=== PATIENT | female | born 1950 | race Caucasian/White ===

== ENCOUNTER 2023-03-04 01:46 | Day surgery (SDC) | payer MEDICARE, BC, SELFPAY ==
--- NOTE | 2023-02-26 13:32 | PC.NURSE ---
Report to the Outpatient Waiting Room, entrance under the green pavilion located off [facility], at time __30 on date __03/04/23 . Planned Procedure Time: __929 . Time changes happen often and if your time is changed the preop area will call you the afternoon before. - You and your visitor will be asked to self-screen and do not enter if you have any COVID symptoms. - A mask is optional within the hospital at this time. Patients may have clear liquids (water, carbonated beverages, clear teas, apple juice) until 3 hours prior to surgery with a maximum of 20 ounces. - No food from midnight until time of surgery - Infants may have breast milk until 4 hours before surgery, infant formula 6 hours prior to surgery. - Children will be allowed to drink immediately following surgery. If applicable, please bring a bottle or sippy cup to assist with drinking. Juice, water, soda, and popsicles are readily available. For infants on formula, please bring formula the day of surgery. Pacifiers are allowed. Take the following medications with a SIP of water the morning of surgery: __DULOXETINE,GABAPENITN DO NOT STOP ANY OF YOUR OTHER PRESCRIPTION MEDICATIONS PRIOR TO SURGERY ?EXCEPT THE FOLLOWING Medications to discontinue per physician ____ALL VITAMINS AND SUPPLEMENTS 3 DAYS PRE OP .LAST DOSE 02/28/23 Please no make-up, nail palestinian, hairspray, perfume, deodorant, or body powder the day of surgery. No jewelry (including any body piercings) or valuables the day of surgery, leave them at home. Please take a shower or bath the night before, or the morning of, surgery with an antibacterial soap. Wear comfortable, loose fitting clothing. Children are encouraged to wear pajamas. - Jewelry must be removed prior to entering the operating room. Rings and piercings that are not removed may be cut off. - The hospital will not accept responsibility for valuables. - Please leave all valuables, including medications, at home the day of surgery. If you are going home after surgery, a licensed form setter/driver must drive you home. - NO public transportation without another adult if you receive anesthesia. - We recommend that an adult stay with you for 24 hours following discharge. - We also recommend that you do not drive, make important decision, drink alcoholic beverages, or take any drugs that were not prescribed by your health care provider for at least 24 hours after your discharge time. For Pediatric surgeries, we recommend two adults accompany the child home. Follow any additional instructions given to you from your surgeon. If you or anyone in your household have experienced Covid symptoms in the past week, please notify your surgeon or the nurse liaison at the phone number below for possible testing. Telephone instructions given to _PATIENT and asked if any additional questions and then verbalized understanding. Patient advised to call surgeon office or pre surgery nurse liaison [phone] if any additional questions.
[2023-02-26 13:45] VITALS: BMI 27.6
[2023-03-04 07:44] VITALS: BP 150/90; PULSE 79; RESP 18; TEMP 36.6; O2SAT 97
[2023-03-04] MEDS: LACTATED RINGERS 1,000 ML 30 ML IV CONT (08:21)
--- NOTE | 2023-03-04 09:04 | WPDANESEPPF ---
Anes - Initial Pre Proc Eval Procedure: Operation Date: 03/04/23 09:30 Proposed Procedures p Excision Right Antecubital Fossa Subcutaneous Mass - Neto Del Castillo MD Date/Time: 03/04/23 09:04 Surgeon: Neto Del Castillo MD Pre Op Diagnosis: subq mass right antecubital fossa Patient Data Age: 72 Gender: F Height: 1.55 m Weight: 66.9 kg Last Vital Signs Temp 36.6 C 03/04/23 07:44 Pulse 79 03/04/23 07:44 Resp 18 03/04/23 07:44 BP 150/90 H 03/04/23 07:44 Pulse Ox 97 03/04/23 07:44 O2 Del Method Room Air 03/04/23 07:44 Allergies Allergy/AdvReac Type Severity Reaction Status Date / Time Penicillins Allergy Unknown Rash Verified 03/04/23 07:40 Home Medications Medication Instructions Recorded Confirmed Type B-complex with vitamin C 1 tablet PO DAILY 03/02/19 02/26/23 History magnesium oxide 250 mg PO DAILY 03/02/19 02/26/23 History gabapentin 300 mg capsule 300 mg PO . once daily #90 caps 07/04/22 02/26/23 Rx irbesartan 300 1 tablet PO DAILY #90 tabs 07/04/22 02/26/23 Rx mg-hydrochlorothiazide 12.5 mg tablet lansoprazole 15 mg capsule,delayed 15 mg PO PRN PRN Heartburn 07/04/22 02/26/23 History release (Prevacid 24Hr) meloxicam 15 mg tablet 15 mg PO DAILY PRN pain #90 tabs 07/04/22 02/26/23 Rx atorvastatin 10 mg tablet 10 mg PO DAILY #90 tabs 09/17/22 02/26/23 Rx fluticasone propionate 50 1 spray intranasal BID #16 grams 01/10/23 02/26/23 Rx mcg/actuation nasal spray,suspension (Flonase Allergy Relief) duloxetine 60 mg capsule,delayed 60 mg PO DAILY FIBROMYALGIA AND IBS 02/26/23 02/26/23 History release multivitamin 1 tablet PO DAILY 02/26/23 02/26/23 History Patient hx anesthesia problems: none Family hx anesthesia problems: none Results Review: All pre-operative results and documents have been reviewed as part of the pre-operative evaluation. [facility] Past Medical History Medical History Adult BMI 28.0-28.9 kg/sq m BMI 27.0-27.9,adult GERD (gastroesophageal reflux disease) Hyperlipidemia Hypertension Lipoma of arm (~2020) 4 cm lipoma flexor surface medial right elbow Menopausal and female climacteric states MVP (mitral valve prolapse) Osteoarthritis involving multiple joints on both sides of body Overweight (BMI 25.0-29.9) URI (upper respiratory infection) (08/24/20) Surgical History Surgical History History of hysterectomy History of Eloise fundoplication Family History Family History Grandparent Family history of osteoporosis Family history of osteoarthritis Acute myocardial infarction Family history of malignant neoplasm of breast in first degree relative Father Acute myocardial infarction Family history of kidney disease Malignant neoplasm of prostate Mother Family history of chronic obstructive pulmonary disease Carcinoma of colon Family history of malignant neoplasm of breast in first degree relative Sibling Carcinoma of colon, Onset Age: 44 Social History Social History Smoking status: Never smoker Alcohol intake: never Substance use: never Substance use type: does not use Lack of Transportation: No Lack of Food: Never True Current Housing: I Have Housing Concerned About Future Housing: No Difficulty Paying Gas/Electric Bills: No Difficulty Paying for Meds: No Currently Unemployed: No Difficulty w/ Childcare or Family Care: No Living arrangements: alone Occupation/Education: retired Spiritual care concerns: No Anes - Eval Final PreProcedure Day of Procedure 03/04/23 09:04 Patient weight: overweight Heart: regular rate and rhythm Lungs: clear to auscultation Airway: Mallampati scale class II Neurological: alert and oriented Last oral intake: >/= 8 hours ASA classification: II Emergent: no Anesthetic plan: pr
--- NOTE | 2023-03-04 09:46 | PM.IMHP ---
H&P: HPI History of Present Illness Date/Time: 03/04/23 09:46 Chief Complaint: Right arm SQ mass Narrative: Ele is a 72 y/o female who presents with a right antecubital fossa mass at the request of Dr. Rich. Patient first noticed the mass about 5 years ago. She states it has increased in size. She denies pain, redness, and drainage. Patient is right handed. Review of Systems Review of Systems: The remainder of the review of systems to include constitutional, HEENT, cardiovascular, respiratory, GI, , integumentary, musculoskeletal, endocrine, immunologic, hematologic, psychiatric, and neurologic are all negative except for which is mentioned above in the HPI. [facility] Past Medical History Medical History Adult BMI 28.0-28.9 kg/sq m BMI 27.0-27.9,adult GERD (gastroesophageal reflux disease) Hyperlipidemia Hypertension Lipoma of arm (~2020) 4 cm lipoma flexor surface medial right elbow Menopausal and female climacteric states MVP (mitral valve prolapse) Osteoarthritis involving multiple joints on both sides of body Overweight (BMI 25.0-29.9) URI (upper respiratory infection) (08/24/20) Surgical History Surgical History History of hysterectomy History of Eloise fundoplication Family History Family History Grandparent Family history of osteoporosis Family history of osteoarthritis Acute myocardial infarction Family history of malignant neoplasm of breast in first degree relative Father Acute myocardial infarction Family history of kidney disease Malignant neoplasm of prostate Mother Family history of chronic obstructive pulmonary disease Carcinoma of colon Family history of malignant neoplasm of breast in first degree relative Sibling Carcinoma of colon, Onset Age: 44 Social History Social History Smoking status: Never smoker Alcohol intake: never Substance use: never Substance use type: does not use Lack of Transportation: No Lack of Food: Never True Current Housing: I Have Housing Concerned About Future Housing: No Difficulty Paying Gas/Electric Bills: No Difficulty Paying for Meds: No Currently Unemployed: No Difficulty w/ Childcare or Family Care: No Living arrangements: alone Occupation/Education: retired Spiritual care concerns: No Meds Home Medications and Allergies Home Medications Medication Instructions Recorded Confirmed Type B-complex with vitamin C 1 tablet PO DAILY 03/02/19 02/26/23 History magnesium oxide 250 mg PO DAILY 03/02/19 02/26/23 History gabapentin 300 mg capsule 300 mg PO . once daily #90 caps 07/04/22 02/26/23 Rx irbesartan 300 1 tablet PO DAILY #90 tabs 07/04/22 02/26/23 Rx mg-hydrochlorothiazide 12.5 mg tablet lansoprazole 15 mg capsule,delayed 15 mg PO PRN PRN Heartburn 07/04/22 02/26/23 History release (Prevacid 24Hr) meloxicam 15 mg tablet 15 mg PO DAILY PRN pain #90 tabs 07/04/22 02/26/23 Rx atorvastatin 10 mg tablet 10 mg PO DAILY #90 tabs 09/17/22 02/26/23 Rx fluticasone propionate 50 1 spray intranasal BID #16 grams 01/10/23 02/26/23 Rx mcg/actuation nasal spray,suspension (Flonase Allergy Relief) duloxetine 60 mg capsule,delayed 60 mg PO DAILY FIBROMYALGIA AND IBS 02/26/23 02/26/23 History release multivitamin 1 tablet PO DAILY 02/26/23 02/26/23 History Allergies Allergy/AdvReac Type Severity Reaction Status Date / Time Penicillins Allergy Unknown Rash Verified 03/04/23 07:40 Vital Signs Vital Signs - 24 hr 03/04/23 07:44 Temperature 36.6 C Pulse Rate 79 Respiratory Rate 18 Blood Pressure 150/90 H Pulse Oximetry 97 Oxygen Delivery Room Air Exam Const: General: comfortable and no acute distress HENMT: Ears: TM's normal bilaterally Face/Nose/Sinus: Normal nares present Mouth: Yes moist m
--- NOTE | 2023-03-04 09:49 | WPDHPUPDATE1 ---
History and Physical Update Update Date/Time: 03/04/23 09:49 History and Physical has been reviewed, including an updated exam of the patient. There are NO changes in the patient's condition. Risks, benefits, and alternatives have been discussed and questions answered. Patient agrees to proceed with procedure.
[2023-03-04] MEDS: ceFAZolin 2 GM/D5W 50 ML 2 GM/50 ML BAG IVPB (10:07)
[2023-03-04] MEDS: LIDO 1%/EPINEPHRINE 1:100,000 50 ML VIAL 20 ML INFILTRATE (10:51)
[2023-03-04 11:00] VITALS: BP 184/96; PULSE 85; RESP 14; O2SAT 96
--- NOTE | 2023-03-04 11:12 | P.OP_ITS ---
Procedure Note - Detailed Date of Procedure 03/04/23 Pre-op Diagnosis subq mass right antecubital fossa Post-op Diagnosis Other (Right antecubital fossa intramuscular lipoma) Procedure Performed Excision right antecubital fossa intramuscular lipoma. Surgeon Neto Del Castillo MD [employer] Jannette [employer] student Anesthesia MAC and Local Indications Patient is a female who presents with a slowly enlarging subcutaneous mass in the right antecubital fossa area. She presents now for excision. Findings [id number] intramuscular lipomatous mass right antecubital fossa. Description of Procedure After informed consent was obtained patient brought to the operating room she was placed supine on the operative table. Anesthesia then administered IV sedation. The right antecubital fossa was then prepped and draped usual sterile fashion. A time-out was then performed correctly identifying the patient as well as procedure to be performed verifying the site marking she was given perioperative IV antibiotics. Utilizing 1% lidocaine mixed with 0.5% Marcaine with some epinephrine I then injected this around the mass for local anesthetic effect. A transverse incision was then made the scalpel down through the dermis of the skin. Then dissected down through the subcutaneous tissue electrocautery. I then realized that the lipomatous mass was actually just below the then fascial layer of the underlying distal biceps muscle. I then incised the fascia with electrocautery to expose the capsule the lipoma and was very well circumscribed. Then with a combination electrocautery and blunt finger dissection I delivered the lipoma about incision and freed from the surrounding muscle fibers of the right biceps muscle. The tendinous insertion of the right biceps muscle was not injured. The right ulnar nerve was never in danger as it was much more for lateral. The neurovascular structures in the right ankle fossa region were preserved without injury. I then irrigated out the incision sterile saline solution. Hemostasis was then achieved electrocautery. The mass measured [id number]. It was sent to pathology for examination. I then close incision with multiple layers of interrupted 3-0 Vicryl sutures in the fascia and subcutaneous tissues. And injected more local anesthetic mixture the subcutaneous tissues around the incision. The skin edges were then approximated utilizing interrupted 3-0 nylon sutures placed in a vertical mattress fashion. The incision was then cleaned and then antibiotic ointment and a sterile dressing was applied. The patient tolerated the procedure well no complications. All sponges, needles, and instrument counts were correct at the end procedure. EBL was _5__cc. The patient was awakened and taken to recovery in stable and satisfactory condition. Implants None Estimated Blood Loss 5 Drains No Packing No Pathology Yes (Right antecubital fossa intramuscular lipoma sent to pathology) Complications No immediate complications Condition Stable Disposition PACU [facility] Billing Surgery - Charge Forward: Surgery Billing
[2023-03-04 11:30] VITALS: BP 187/99; PULSE 68
== END 2023-03-04 11:45 | disposition home or self-care (01) ==
PROVIDERS: PCP Family Medicine; Visit Provider Surgery
PROC: (CPT 24073; principal; 2023-03-04 09:30)
DX: D17.9 Benign lipomatous neoplasm, unspecified (principal); E78.5 Hyperlipidemia, unspecified; I10 Essential (primary) hypertension
CPT/HCPCS: 24073; 88304; A9270; J0690; J2704; J3010; J7120

== ENCOUNTER 2024-01-31 12:30 | Outpatient (CLI) | payer MEDICARE, BC, SELFPAY ==
--- NOTE | ~2024-01-31 | DEXA_ITS ---
Bone Density Report Name: ANNELISE HANDLEY Age: 73 Sex: Female Ethnicity: White Date of : 1950 Indication: postmenopausal; screening for osteoporosis; prior fracture; hysterectomy; Referring Provider: FLORENCE REEDER Study: Bone densitometry was performed. Exam Date: January 31, 2024 Accession number: [id number] Bone Density: Region BMD T-score Z-score Classification AP Spine(L1-L4) 0.864 -1.7 0.5 Osteopenia Femoral Neck (Left) 0.597 -2.3 -0.4 Osteopenia Total Hip (Left) 0.851 -0.7 0.8 Normal Femoral Neck (Right) 0.655 -1.7 0.1 Osteopenia Total Hip (Right) 0.831 -0.9 0.7 Normal Femoral Neck Mean 0.626 -2.0 -0.1 Osteopenia Total Hip Mean 0.841 -0.8 0.7 Normal World Health Organization criteria for BMD impression classify patients as: Normal (T-score at or above -1.0), Osteopenia (T-score between -1.0 and -2.5), or Osteoporosis (T-score at or below -2.5). 10-year Fracture Risk(1): Major Osteoporotic Fracture 20% Hip Fracture 4.6% Reported Risk Factors: [place] (), Neck BMD=0.597, BMI=29.1, previous fracture (1) FRAX(R) Version 3.08. Fracture probability calculated for an untreated patient. Fracture probability may be lower if the patient has received treatment. Clinical Information Provided by Patient: Has had a low trauma fracture Has used the following medications: Vitamin D, Calcium Has the following medical conditions: Hysterectomy Patient maximum height was 61.0 Menopause Age: 53 No regular weight bearing exercise Drinks caffeinated beverages Onset of menses at age 16 Number of children 2 Impression: The patient has low bone mass, based on the Left Femoral Neck T-score. The patient has risk factors, including: previous fracture. Discussion: BONE DENSITY IS LOW AT ONE OR MORE SKELETAL SITES. This patient's lowest T-score is low at one or more skeletal sites. It meets the World Health Organization's (WHO) criteria for ?low bone mass? (T-score between -1.0 and -2.5). The patient's 10-year risk of fracture as calculated by FRAX is less than the threshold where pharmacological therapy is recommended by the National Osteoporosis Foundation (NOF). However, all treatment decisions require clinical judgment and consideration of individual patient factors, including patient preferences, comorbidities, previous drug use, risk factors not captured in the FRAX model (e.g., frailty, falls, vitamin D deficiency, increased bone turnover, interval significant decline in bone density) and possible under or overestimation of fracture risk by FRAX. The patient should follow a healthful lifestyle (good nutrition with adequate calcium and vitamin D, and appropriate weight-bearing exercise). Follow-Up: Consider repeating this study in 2 to 3 years to reassess this patient's status, or sooner if there is some new clinical indication. Reported by: PEDRO on 01/31/2024 12:49:00 PM. Reviewed, dictated and finalized at location A.
== END 2024-01-31 12:31 | disposition home or self-care (01) ==
LOC: CHSIMG 12:31
PROVIDERS: PCP Family Medicine; Visit Provider Family Medicine
DX: Z78.0 Asymptomatic menopausal state (principal); M85.89 Other specified disorders of bone density and structure, multiple sites
CPT/HCPCS: 77080

== ENCOUNTER 2024-02-11 11:16 | Outpatient (CLI) | payer MEDICARE, BC, SELFPAY ==
--- NOTE | ~2024-02-11 | MM_ITS ---
EXAMINATION: MM screening pee BI w kuldeep HISTORY: Screening mammogram, family history of breast cancer in her mother. TECHNIQUE: Craniocaudal and mediolateral oblique 3-D tomosynthesis images were obtained and synthetic 2-D images were generated. CAD analysis was submitted and interpreted. COMPARISON: 02/05/2019, 01/14/2018 BREAST PARENCHYMAL COMPOSITION:Not Dense. There are scattered areas of fibroglandular density. FINDINGS: No suspicious mass, calcification, or architectural distortion are identified in either sherwin ast to suggest malignancy. There has been no suspicious interval change. IMPRESSION: No mammographic evidence of malignancy. Recommend routine screening mammography in one year. BI-RADS Category 1: Negative Reviewed, dictated and finalized at location . [employer]
== END 2024-02-11 11:17 | disposition home or self-care (01) ==
LOC: MICIMG 11:16
PROVIDERS: PCP Family Medicine; Visit Provider Family Medicine
DX: Z12.31 Encounter for screening mammogram for malignant neoplasm of breast (principal)
CPT/HCPCS: 77063; 77067